=== PATIENT | female | born 1950 | race Caucasian/White ===

== ENCOUNTER 2019-04-29 07:15 | Day surgery (SDC) | payer MEDICARE, OTHER ==
[2019-05-22] MEDS ORDERED: METF500 PO (13:57)
[2019-05-22] MEDS ORDERED: SIMV40 PO (13:57)
[2019-05-22] MEDS ORDERED: Neurontin 300300 MG PO (13:58)
[2019-05-22] MEDS ORDERED: LEVSOD137 PO (13:58)
[2019-05-22] MEDS ORDERED: TERB250 PO (13:59)
[2019-05-22] MEDS ORDERED: Norco 7.5-3251 EACH PO (14:00)
[2019-05-22] MEDS ORDERED: [UNRECOGNIZED DRUG - OTHER] PO (14:01)
== END 2019-04-29 22:53 | disposition home or self-care (01) ==
LOC: MOI MAM 07:15
DX: C50.911 Malignant neoplasm of unspecified site of right female breast (principal); R92.8 Other abnormal and inconclusive findings on diagnostic imaging of breast; Z17.0 Estrogen receptor positive status [ER+]
CPT/HCPCS: 19083; 77065; 88305; 88360; A4648; G0279

== ENCOUNTER 2019-05-24 08:30 | Day surgery (SDC) | payer MEDICARE, OTHER ==
[~2019-05-24 08:30] MED LIST: LEVSOD137 PO; METF500 PO; Neurontin 300300 MG PO; Norco 7.5-3251 EACH PO; SIMV40 PO; TERB250 PO; [UNRECOGNIZED DRUG - OTHER] PO
== END 2019-05-24 23:30 | disposition home or self-care (01) ==
LOC: MOI US 08:30
PROC: BH40ZZZ Ultrasonography of Right Breast (ICD-10-PCS; principal; 2019-05-24)
DX: C50.911 Malignant neoplasm of unspecified site of right female breast (principal)
CPT/HCPCS: 19285; 77065

== ENCOUNTER 2019-05-28 07:40 | Day surgery (SDC) | payer MEDICARE, OTHER ==
[~2019-05-28] VITALS: Ht 177.8 cm; Wt 84.1 kg
--- NOTE | 2019-05-28 08:24 | NUR ---
Ambulatory in Day Surgery History, Chart, Medications and Allergies reviewed before start of procedure.Lungs clear T/O to Auscultation. Patient confirms NPO status and agrees with scheduled surgery. Patient reports completing Chlorhexadine shower X2 prior to admission to hospital.Surgical site prepped with 2% Chlorhexidine cloth wipe. Patient States Post-Procedure ride home has been arranged.
--- NOTE | 2019-05-28 13:11 | NUR ---
RECEIVED REPORT FROM BROADCAST FIELD SUPERVISOR (JUDI). PT IS AWAKE AND TALKING TO RN. STATES THAT RT BR IS BOTHERING HER 02/03
--- NOTE | 2019-05-28 13:53 | NUR ---
PT UP TO THE BATHROOM. PT STATES STILL HAVING SOME "STABBING PAIN" BUT DECREASED TO A 2/10. Discharge instructions reviewed with patient. Patient verbalizes understanding. Copy given to patient to take home. PT VOICES NO QUESTIONS OR CONCERNS WITH D/C HAS RX AND PAPERWORK. Patient States Post-Procedure ride home has been arranged. SISTER IN LAW WILL BE PT RIDE HOME.
--- NOTE | 2019-05-28 14:01 | NUR ---
PT DRESSED AND HAS ALL PAPERWORK. FRIEND IS IN THE CAR AT THE PATIENT ENTRANCE. Discharged via wheelchair to private car for ride home.
--- NOTE | 2019-05-28 14:05 | NUR ---
05/28/19 1405 Lela Ny CHART AUDITS AND VERIFICATIONS.
== END 2019-05-28 23:43 | disposition home or self-care (01) ==
LOC: NM 07:40 → ORSCMMR 07:40 → NM 09:00
PROVIDERS: Surgery
PROC: 07B50ZX Excision of Right Axillary Lymphatic, Open Approach, Diagnostic (ICD-10-PCS; principal; 2019-05-28 10:45)
PROC: 0HBT0ZZ Excision of Right Breast, Open Approach (ICD-10-PCS; principal; 2019-05-28 10:45)
DX: C50.911 Malignant neoplasm of unspecified site of right female breast (principal); Z17.0 Estrogen receptor positive status [ER+]; D36.0 Benign neoplasm of lymph nodes; K21.9 Gastro-esophageal reflux disease without esophagitis; E11.9 Type 2 diabetes mellitus without complications; E03.9 Hypothyroidism, unspecified; F17.210 Nicotine dependence, cigarettes, uncomplicated; Z79.899 Other long term (current) drug therapy
CPT/HCPCS: 76098; 78195; 82947; 88307; 88342; A9270-GY; A9520; J0690; J2405; J2704; J3010; J7120; Q9968

== ENCOUNTER → 2019-09-26 | Outpatient (CLI) | payer MEDICARE, OTHER | END | disposition home or self-care (01) | LOC: PLD 14:06 → LAB SHORT 14:06 | DX: D48.62 Neoplasm of uncertain behavior of left breast (principal); Z85.3 Personal history of malignant neoplasm of breast | CPT/HCPCS: 88305 ==

== ENCOUNTER 2020-06-21 13:43 | Emergency (ER) | payer MEDICARE, OTHER ==
[~2020-06-21] VITALS: Ht 177.8 cm; Wt 78.0 kg
[2020-06-21 14:21] LABS: BASOPHILS ABSOLUTE AUTO 0.01 K/mm3 (0.00-0.23); BASOPHILS PERCENT AUTO 0 % (0-2); EOSINOPHILS ABSOLUTE AUTO 0.39 K/mm3 (0.00-0.68); EOSINOPHILS PERCENT AUTO 6 % (0-6); Hematocrit 42.2 % (33.0-51.0); Hemoglobin 13.4 g/dL (11.5-16.0); IMMATURE GRAN PERCENT AUTO 0 % (0-1); LYMPHOCYTES ABSOLUTE AUTO 1.01 K/mm3 (0.84-5.20); LYMPHOCYTES PERCENT AUTO 15 % (21-46); MONOCYTES PERCENT AUTO 6 % (4-13); Mean Corpuscular HGB 28.6 pg (26.0-34.0); Mean Corpuscular HGB Conc 31.8 g/dL (31.5-36.5); Mean Corpuscular Volume 90 fL (80-100); Mean Platelet Volume 12.6 fL (9.1-12.4); NEUTROPHILS PERCENT AUTO 74 % (41-73); Platelet Count 128 K/mm3 (150-400); RDW Coefficient Variation 13.8 % (11.7-14.2); RDW Standard Deviation 45.7 fL (35.1-46.3); Red Blood Cell Count 4.68 M/mm3 (3.80-5.20); White Blood Cell Count 6.91 K/mm3 (4.00-11.30)
[2020-06-21] MEDS ORDERED: ANASTROZOLE5 GM MC (14:25)
[2020-06-21] MEDS ORDERED: BUSP5 PO (14:26)
[2020-06-21 14:42] LABS: Alanine Aminotransfer (ALT/SGP 20 U/L (12-78); Albumin, Blood 3.9 g/dL (3.4-5.0); Albumin/Globulin Ratio 1.3 (0.8-1.8); Alk Phos 88 U/L (50-136); Anion Gap 6 mmol/L (6-16); Aspartate Aminotrans (AST/SGOT 9 U/L (12-37); Bilirubin, Total 0.4 mg/dL (0.1-1.0); Blood Urea Nitrogen 13 mg/dL (8-24); Bun/Creatinine Ratio 15.2 (12.0-20.0); CO2, Blood 28 mmol/L (21-32); Calcium, Blood 9.4 mg/dL (8.5-10.1); Chloride, Blood 109 mmol/L (98-108); Creatinine, Blood 0.86 mg/dL (0.40-1.00); Glomerular Filtration Rate >60 (60-); Glucose, Blood 125 mg/dL (70-99); Sodium, Blood 143 mmol/L (136-145); Total Protein, Blood 6.9 g/dL (6.4-8.2)
[2020-06-21] MEDS ORDERED: MECL25 PO (16:20)
== END 2020-06-21 16:36 | disposition home or self-care (01) ==
LOC: ER 13:43
PROVIDERS: Physician Assistant
DX: H81.391 Other peripheral vertigo, right ear (principal); F17.210 Nicotine dependence, cigarettes, uncomplicated; Z79.899 Other long term (current) drug therapy
CPT/HCPCS: 36415; 70450; 80053; 85025; 93005; 93010; 99284-25

== ENCOUNTER → 2020-11-26 | Outpatient (CLI) | payer MEDICARE, OTHER ==
[~2020-11-26] MED LIST changes: +ANASTROZOLE5 GM MC; +BUSP5 PO; +MECL25 PO
== END | disposition home or self-care (01) ==
LOC: LAB SRC 09:45
DX: N39.0 Urinary tract infection, site not specified (principal)
CPT/HCPCS: 87077; 87086; 87186